=== PATIENT | male | born 1955 | race Caucasian/White ===

== ENCOUNTER → 2016-08-08 | Outpatient (REF) | payer BC ==
[2016-08-08 16:04] LABS: BASO # 0.1 K/mm3 (0.0-0.2); BASO % 0.6 % (0.0-1.0); EOS # 0.2 K/mm3 (0.0-0.50); EOS % 1.8 % (0.0-3.0); LARGE UNSTAINED CELL # 0.2 K/mm3 (0.0-0.4); LARGE UNSTAINED CELL % 1.5 % (0.0-4.0); LYMPH # 2.2 K/mm3 (1.5-4.5); LYMPH % 19.2 % (24.0-44.0); MEAN CORPUSCULAR HEMOGLOBIN 30.5 pg (27.0-33.0); MEAN CORPUSCULAR HGB CONC 33.2 g/dl (32.0-36.5); MONO # 0.6 K/mm3 (0.0-0.8); MONO % 5.7 % (0.0-5.0); NEUTROPHILS # 7.7 K/mm3 (1.8-7.7); NEUTROPHILS % 71.2 % (36.0-66.0); PLATELET COUNT, AUTOMATED 205 k/mm3 (150-450); RED CELL DISTRIBUTION WIDTH 12.6 % (11.5-14.5); WHITE BLOOD COUNT 10.8 K/mm3 (4.0-10.0)
[2016-08-08 16:13] LABS: ALBUMIN/GLOBULIN RATIO 1.67 (1.00-1.93); ALKALINE PHOSPHATASE 109 U/L (45-117); ALT/SGPT 44 U/L (12-78); ANION GAP 7 MEQ/L (8-16); AST/SGOT 20 U/L (15-37); BILIRUBIN,TOTAL 0.6 MG/DL (0.2-1.0); BLOOD UREA NITROGEN 14 MG/DL (7-18); CALCIUM LEVEL 8.6 MG/DL (8.8-10.2); CARBON DIOXIDE LEVEL 29 MEQ/L (21-32); CHLORIDE LEVEL 106 MEQ/L (98-107); CREATININE FOR GFR 0.89 MG/DL (0.70-1.30); GLOMERULAR FILTRATION RATE > 60.0 (>49); GLUCOSE, FASTING 86 MG/DL (80-110); POTASSIUM SERUM 4.4 MEQ/L (3.5-5.1); SODIUM LEVEL 142 MEQ/L (136-145); TOTAL PROTEIN 6.4 GM/DL (6.4-8.2); URIC ACID 6.2 MG/DL (3.5-7.2)
[2016-08-08 17:25] LABS: ERYTHROCYTE SEDIMENTATION RATE 3 mm/hr (0-20)
[2016-08-12 13:06] LABS: ALBUMIN 3.97 GM/DL (3.29-5.55); ALBUMIN % 62.1 % (55.8-66.1); GAMMA GLOBULIN % 10.7 % (11.1-18.8)
== END ==
LOC: M LABDRAW1 15:40
PROVIDERS: ATTEND Orthopaedic Surgery
DX: M16.12 Unilateral primary osteoarthritis, left hip (principal)

== ENCOUNTER → 2016-08-20 | Outpatient (REF) | payer BC | LOC: M LABDRAW1 15:36 | PROVIDERS: ATTEND Orthopaedic Surgery | DX: M16.12 Unilateral primary osteoarthritis, left hip (principal); M51.26 Other intervertebral disc displacement, lumbar region ==

== ENCOUNTER → 2017-09-16 | Outpatient (REF) | payer MEDICAID ==
[2017-09-16 15:36] LABS: PROSTATIC SPECIFIC AG MONITOR 4.14 NG/ML (< 4.0)
== END ==
LOC: M LABDRWAD 13:32
DX: N40.1 Benign prostatic hyperplasia with lower urinary tract symptoms (principal)

== ENCOUNTER → 2017-12-25 | Outpatient (CLI) | payer OTHER ==
[2017-12-25 10:17] LABS: HEMATOCRIT 50.8 % (42.0-52.0); HEMOGLOBIN 16.9 g/dl (13.5-17.5); MEAN CORPUSCULAR HEMOGLOBIN 30.3 pg (27.0-33.0); MEAN CORPUSCULAR HGB CONC 33.3 g/dl (32.0-36.5); MEAN CORPUSCULAR VOLUME 91.2 fl (80.0-96.0); PLATELET COUNT, AUTOMATED 241 10^3/uL (150-450); RED BLOOD COUNT 5.57 10^6/uL (4.30-6.10); RED CELL DISTRIBUTION WIDTH 13.9 % (11.5-14.5)
[2017-12-25 10:27] LABS: INR 0.96; PROTHROMBIN TIME 12.9 SECONDS (12.1-14.4)
[2017-12-25 10:37] LABS: ERYTHROCYTE SEDIMENTATION RATE 9 mm/hr (0-20)
[2017-12-25 10:44] LABS: ALBUMIN 3.7 GM/DL (3.2-5.2); ALBUMIN/GLOBULIN RATIO 1.23 (1.00-1.93); ALKALINE PHOSPHATASE 81 U/L (45-117); ALT/SGPT 27 U/L (12-78); ANION GAP 5 MEQ/L (8-16); AST/SGOT 16 U/L (7-37); BILIRUBIN,TOTAL 0.9 MG/DL (0.2-1.0); BLOOD UREA NITROGEN 16 MG/DL (7-18); CALCIUM LEVEL 9.1 MG/DL (8.8-10.2); CARBON DIOXIDE LEVEL 29 MEQ/L (21-32); CHLORIDE LEVEL 108 MEQ/L (98-107); CREATININE FOR GFR 0.96 MG/DL (0.70-1.30); GLOMERULAR FILTRATION RATE > 60.0 (>49); GLUCOSE, FASTING 86 MG/DL (70-100); POTASSIUM SERUM 4.8 MEQ/L (3.5-5.1); SODIUM LEVEL 142 MEQ/L (136-145); TOTAL PROTEIN 6.7 GM/DL (6.4-8.2)
== END ==
LOC: M LAB 08:06
DX: Z01.818 Encounter for other preprocedural examination (principal)
CPT/HCPCS: 71046

== ENCOUNTER 2018-02-13 05:38 | Inpatient (IN) | payer OTHER ==
[2018-02-13] MEDS: ACETAMINOPHEN 500 MG TAB PO (06:37)
[2018-02-13] MEDS: LR 1,000 ML IV ×3 (06:38→21:15)
[2018-02-13] MEDS ORDERED: dexameTHASONE 4 MG/ML 1ML VIAL (J1100) As Ordered (07:02)
[2018-02-13] MEDS ORDERED: LIDOCAINE 2% INJ 100 MG/5 ML SDV (FOR ANES.) As Ordered (07:02)
[2018-02-13] MEDS ORDERED: PHENYLephrine HCL 500 MCG/5 ML (100MCG/ML) SYRINGE (J2370) As Ordered ×2 (07:02→08:41)
[2018-02-13] MEDS ORDERED: ONDANSETRON 4MG/2ML VIAL (J2405) As Ordered (07:02)
[2018-02-13] MEDS ORDERED: MIDAZOLAM INJ 2 MG/2 ML VIAL (J2250) As Ordered (07:02)
[2018-02-13] MEDS ORDERED: PROPOFOL 500 MG/50 ML VIAL As Ordered (07:02)
[2018-02-13] MEDS ORDERED: fentaNYL 100 MCG/2 ML INJECTION (J3010) As Ordered (07:02)
[2018-02-13] MEDS ORDERED: KETOROLAC 60 MG/2 ML VIAL (J1885) As Ordered (07:02)
[2018-02-13] MEDS: ceFAZolin 1GM INJ (J0690 PER 500MG) As Ordered (08:13)
[2018-02-13] MEDS ORDERED: BUPIVACAINE/DEXTROSE 0.75% 2 ML AMP As Ordered (08:13)
[2018-02-13] MEDS ORDERED: PROPOFOL 200 MG/20 ML VIAL As Ordered ×2 (08:39)
[2018-02-13] MEDS: TRANEXAMIC ACID 100 MG/ML 10ML VIAL As Ordered (09:18)
[2018-02-13] MEDS: EPINEPHrine INJ 1 MG/ML 1ML AMP As Ordered (09:18)
[2018-02-13] MEDS ORDERED: MORPHINE 1MG/ML IN 0.9% NACL 100ML IV BAG As Ordered (09:50)
[2018-02-13] MEDS ORDERED: NALOXONE INJ 0.4 MG/1 ML VIAL (J2310) IV (10:00)
[2018-02-13] MEDS ORDERED: ONDANSETRON 4MG/2ML VIAL (J2405) IV ×2 (10:00→10:15)
[2018-02-13] MEDS ORDERED: diphenhydrAMINE INJ 50MG/ML VIAL (J1200) IV (10:00)
[2018-02-13] MEDS ORDERED: NALBUPHINE HCL 10 MG/ML AMP (J2300) IV (10:00)
[2018-02-13] MEDS ORDERED: EPIDURAL/PCA KEYS XX (10:00)
[2018-02-13] MEDS ORDERED: MORPHINE 1MG/ML IN 0.9% NACL 100ML IV BAG IV (10:00)
[2018-02-13] MEDS ORDERED: ACETAMINOPHEN TAB 650MG DOSE (2X325MG) PO (10:15)
[2018-02-13] MEDS ORDERED: FLEET ENEMA PR (10:15)
[2018-02-13] MEDS ORDERED: MORPHINE 10 MG/ML 1ML VIAL (J2270) IV (10:15)
[2018-02-13] MEDS ORDERED: fentaNYL 100 MCG/2 ML INJECTION (J3010) IV (10:15)
[2018-02-13] MEDS ORDERED: RIVAROXABAN 10 MG TAB (XARELTO) PO (18:00)
[2018-02-14] MEDS ORDERED: PERCOCET 5MG/325MG TAB PO (07:00)
[2018-02-14] MEDS ORDERED: ONDANSETRON 4 MG TAB (S0181) PO (07:00)
[2018-02-14 07:07] LABS: HEMATOCRIT 44.6 % (42.0-52.0); HEMOGLOBIN 15.1 g/dl (13.5-17.5); MEAN CORPUSCULAR HEMOGLOBIN 30.4 pg (27.0-33.0); MEAN CORPUSCULAR HGB CONC 33.9 g/dl (32.0-36.5); MEAN CORPUSCULAR VOLUME 89.9 fl (80.0-96.0); PLATELET COUNT, AUTOMATED 233 10^3/uL (150-450); RED BLOOD COUNT 4.96 10^6/uL (4.30-6.10); RED CELL DISTRIBUTION WIDTH 13.6 % (11.5-14.5); WHITE BLOOD COUNT 18.2 10^3/uL (4.0-10.0)
[2018-02-14 07:18] LABS: INR 0.97
[2018-02-14 07:37] LABS: ANION GAP 9 MEQ/L (8-16); BLOOD UREA NITROGEN 17 MG/DL (7-18); CALCIUM LEVEL 8.7 MG/DL (8.8-10.2); CARBON DIOXIDE LEVEL 28 MEQ/L (21-32); CHLORIDE LEVEL 104 MEQ/L (98-107); CHOLESTEROL LEVEL 194 MG/DL (<200); CHOLESTEROL RISK RATIO 4.311 (<5); CREATININE FOR GFR 0.97 MG/DL (0.70-1.30); GLOMERULAR FILTRATION RATE > 60.0 (>49); GLUCOSE, FASTING 98 MG/DL (70-100); HDL CHOLESTEROL 45 MG/DL (>40); LDL CHOLESTEROL 121 MG/DL (<100); NON-HDL-C 149 MG/DL; POTASSIUM SERUM 4.6 MEQ/L (3.5-5.1); SODIUM LEVEL 141 MEQ/L (136-145); THYROID STIMULATING HORMONE 0.426 uIU/ML (0.358-3.740); TRIGLYCERIDES LEVEL 141 MG/DL (<150)
[2018-02-14 07:49] LABS: ESTIMATED AVERAGE GLUCOSE 108 MG/DL (60-110); HEMOGLOBIN A1c 5.4 %
[2018-02-14] MEDS: SENOKOT S TAB PO (09:35)
[2018-02-14] MEDS: MOM 30ML SUSPENSION UDC PO (09:35)
[2018-02-14] MEDS: MIRALAX *UNIT DOSE* 17GM PACKET PO (09:35)
[2018-02-14] MEDS: PERCOCET 5MG/325MG TAB PO (09:36)
[2018-02-14] MEDS ORDERED: RIVAROXABAN 10 MG TAB (XARELTO) PO (18:00)
== END 2018-02-14 12:15 | disposition home health service (06) | DRG 301 ==
LOC: M OR 05:38 → M MS5PR 12:00
PROC: 0SRB04A Replacement of Left Hip Joint with Ceramic on Polyethylene Synthetic Substitute, Uncemented, Open Approach (ICD-10-PCS; principal; 2018-02-13 07:24)
DX: M16.12 Unilateral primary osteoarthritis, left hip (principal); M06.9 Rheumatoid arthritis, unspecified; F17.210 Nicotine dependence, cigarettes, uncomplicated; R73.9 Hyperglycemia, unspecified

== ENCOUNTER 2018-07-16 11:42 | Day surgery (SDC) | payer OTHER ==
[~2018-07-16] VITALS: Ht 182.9 cm; Wt 121.6 kg
[~2018-07-16 11:42] MED LIST: LAC-LOT2 EX; NS 1,000 ML IV ONE; PERC5TAB12 PO; VIAG100T PO; XARE10TA PO
[2018-07-16] MEDS ORDERED: PROPOFOL 200 MG/20 ML VIAL As Ordered ONE ×2 (12:06→13:33)
[2018-07-16] MEDS ORDERED: LIDOCAINE 2% INJ 100 MG/5 ML SDV (FOR ANES.) As Ordered ONE (12:06)
--- NOTE | 2018-07-16 13:59 | ROOR ---
Patient Name: Drew Camp Procedure Date: 07/16/2018 1:12 PM Date of : 1955 Age: 62 Room: [facility] Gender: Male Note Status: Finalized Procedure: Colonoscopy Indications: Screening in patient at increased risk: Family history of 1st-degree relative with colorectal cancer Providers: Joey Kern Jr, MD Referring MD: RICHARD MEZA Requesting Provider: Medicines: Propofol per Anesthesia Complications: No immediate complications. Procedure: Pre-Anesthesia Assessment: - Prior to the procedure, a History and Physical was performed, and patient medications and allergies were reviewed. The patient is competent. The risks and benefits of the procedure and the sedation options and risks were discussed with the patient. All questions were answered and informed consent was obtained. Patient identification and proposed procedure were verified by the physician and the nurse in the pre-procedure area and in the procedure room. Mental Status Examination: alert and oriented. Airway Examination: normal oropharyngeal airway and neck mobility. Respiratory Examination: clear to auscultation. CV Examination: normal. ASA Grade Assessment: II - A patient with mild systemic disease. After reviewing the risks and benefits, the patient was deemed in satisfactory condition to undergo the procedure. The anesthesia plan was to use moderate sedation / analgesia (conscious sedation). Immediately prior to administration of medications, the patient was re-assessed for adequacy to receive sedatives. The heart rate, respiratory rate, oxygen saturations, blood pressure, adequacy of pulmonary ventilation, and response to care were monitored throughout the procedure. The physical status of the patient was re-assessed after the procedure. The Colonoscope was introduced through the anus and advanced to the cecum, identified by appendiceal orifice and ileocecal valve. The colonoscopy was performed without difficulty. The patient tolerated the procedure well. The quality of the bowel preparation was adequate. Findings: The rectum, recto-sigmoid colon, cecum, appendiceal orifice and ileocecal valve appeared normal. Multiple small and large-mouthed diverticula were found in the sigmoid colon. Multiple small and large-mouthed diverticula were found in the sigmoid colon. Betzaida-diverticular erythema was seen. Petechia were visualized in association with the diverticular opening. There was no evidence of diverticular bleeding. Five polyps were found in the sigmoid colon and transverse colon. The polyps were small in size. These polyps were removed with a hot snare. Resection and retrieval were complete. A medium polyp was found in the transverse colon. The polyp was semi-pedunculated. The polyp was removed with a hot snare. Resection and retrieval were complete. Impression: - The rectum, recto-sigmoid colon, cecum, appendiceal orifice and ileocecal valve are normal. - Diverticulosis in the sigmoid colon. - Moderate diverticulosis in the sigmoid colon. Betzaida-diverticular erythema was seen. Petechia were visualized in association with the diverticular opening. There was no evidence of diverticular bleeding. - Five small polyps in the sigmoid colon and in the transverse colon, removed with a hot snare. Resected and retrieved. - One medium polyp in the transverse colon, removed with a hot snare. Resected and retrieved. Recommendation: - Discharge patient to home (ambulatory). - Repeat colonoscopy in 3 - 5 years for surveillance based on pathology results. Joey Kern MD Joey Kern Jr, MD 07/16/2018 1:58:34 PM Electronically signed by Joey Kern Jr, MD Number of Addenda: 0 Note Initiated On: 07/16/2018 1:12 PM Estimated Blood Loss: Estimated blood loss: none.
[2018-07-16 14:20] VITALS: BP 175/89
== END 2018-07-16 14:28 | disposition home or self-care (01) ==
LOC: M OPP 11:42
PROVIDERS: ATTEND Surgery
DX: D12.5 Benign neoplasm of sigmoid colon (principal); D12.3 Benign neoplasm of transverse colon; K57.30 Diverticulosis of large intestine without perforation or abscess without bleeding; Z12.11 Encounter for screening for malignant neoplasm of colon; Z80.0 Family history of malignant neoplasm of digestive organs

== ENCOUNTER → 2018-12-31 | Outpatient (REF) | payer MEDICARE, OTHER, SELFPAY ==
[~2018-12-31] MED LIST changes: -NS 1,000 ML IV ONE
[2018-12-31 13:05] LABS: BASO # 0.1 10^3/uL (0.0-0.2); BASO % 0.5 % (0.0-1.0); EOS # 0.1 10^3/uL (0.0-0.5); EOS % 0.9 % (0.0-3.0); HEMATOCRIT 53.5 % (42.0-52.0); HEMOGLOBIN 18.1 g/dl (13.5-17.5); LYMPH # 2.8 10^3/uL (1.5-5.0); LYMPH % 19.2 % (24.0-44.0); MEAN CORPUSCULAR HEMOGLOBIN 30.4 pg (27.0-33.0); MEAN CORPUSCULAR HGB CONC 33.8 g/dl (32.0-36.5); MEAN CORPUSCULAR VOLUME 89.9 fl (80.0-96.0); MONO # 1.1 10^3/uL (0.0-0.8); MONO % 7.8 % (0.0-5.0); NEUTROPHILS # 10.2 10^3/uL (1.5-8.5); NEUTROPHILS % 70.8 % (36.0-66.0); PLATELET COUNT, AUTOMATED 278 10^3/uL (150-450); RED BLOOD COUNT 5.95 10^6/uL (4.30-6.10); WHITE BLOOD COUNT 14.4 10^3/uL (4.0-10.0)
[2018-12-31 13:33] LABS: ERYTHROCYTE SEDIMENTATION RATE 2 mm/hr (0-20)
== END ==
LOC: M LABDRAW1 08:37
PROVIDERS: ATTEND Orthopaedic Surgery
DX: Z47.1 Aftercare following joint replacement surgery (principal)

== ENCOUNTER → 2020-05-08 | Outpatient (CLI) | payer SELFPAY | LOC: M LABSMTC 12:59 | PROVIDERS: ATTEND Pediatrics | DX: Z20.822 Contact with and (suspected) exposure to COVID-19 (principal) ==

== ENCOUNTER → 2020-08-29 | Outpatient (CLI) | payer MEDICARE ==
--- NOTE | 2020-08-29 11:17 | REP ---
INDICATION: LOCALIZED MAS/LUMP AT BASE OF 5TH DIGIT X 1 YEAR COMPARISON: 06/22/2019. TECHNIQUE: Four views right hand. FINDINGS: Once again the lunate bone appears sclerotic and is not well visualized. 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 There is again moderate narrowing with subchondral sclerosis at the radiocarpal joint. There is no acute fracture or dislocation. There is appear rounded soft tissue mass adjacent to the 5th metacarpophalangeal joint, approximately 3 cm in diameter. IMPRESSION: No acute fracture or dislocation. Arthritic changes again seen at the radiocarpal joint. There appears to be a rounded soft tissue mass adjacent to the 5th metacarpophalangeal joint. Recommend MRI with and without contrast to further evaluate. <Electronically signed by Harsha Kimble > 08/29/20 [id number]
== END ==
LOC: M WUC 08:56
PROVIDERS: ATTEND Physician Assistant
DX: R22.31 Localized swelling, mass and lump, right upper limb (principal)

== ENCOUNTER → 2020-10-10 | Outpatient (CLI) | payer MEDICARE ==
[2020-10-10 11:14] LABS: BLOOD UREA NITROGEN 12 MG/DL (7-18); CREATININE FOR GFR 0.96 MG/DL (0.70-1.30); GLOMERULAR FILTRATION RATE > 60.0 (>49)
== END ==
LOC: M LAB 10:21
PROVIDERS: ATTEND Orthopaedic Surgery
DX: M79.89 Other specified soft tissue disorders (principal)

== ENCOUNTER → 2021-01-25 | Outpatient (REF) | payer MEDICARE | LOC: M LABDRWAD 15:57 | PROVIDERS: ATTEND Nurse Practitioner Family | DX: R97.20 Elevated prostate specific antigen [PSA] (principal) ==

== ENCOUNTER → 2021-03-14 | Outpatient (REF) | payer MEDICARE | LOC: M LABDRWAD 13:14 | PROVIDERS: ATTEND Nurse Practitioner Family | DX: R97.20 Elevated prostate specific antigen [PSA] (principal) ==

== ENCOUNTER → 2021-04-12 | Outpatient (CLI) | payer MEDICARE ==
--- NOTE | 2021-04-12 11:33 | REP ---
INDICATION: PAIN COMPARISON: None. TECHNIQUE: AP and frog-lateral views of the right hip FINDINGS: Osteopenia and moderate degenerative changes include increased sclerosis along the acetabular roof with moderate joint space narrowing and very subtle marginal spurring. No acute fracture or dislocation is identified. Evidence for peripheral vascular disease. IMPRESSION: Osteopenia and early moderate degenerative changes. <Electronically signed by Dameon Smith > 04/12/21 [id number]
== END ==
LOC: M WUC 11:19
PROVIDERS: ATTEND Physician Assistant
DX: M16.11 Unilateral primary osteoarthritis, right hip (principal); M85.851 Other specified disorders of bone density and structure, right thigh; M25.551 Pain in right hip

== ENCOUNTER → 2021-12-18 | Outpatient (CLI) | payer MEDICARE | LOC: M ADAMS 13:02 | PROVIDERS: ATTEND Nurse Practitioner Family | DX: R97.20 Elevated prostate specific antigen [PSA] (principal); N40.1 Benign prostatic hyperplasia with lower urinary tract symptoms; R35.1 Nocturia ==

== ENCOUNTER → 2022-06-21 | Outpatient (REF) | payer MEDICARE | LOC: M LAB REF 19:56 | PROVIDERS: ATTEND Nurse Practitioner Family | DX: R97.20 Elevated prostate specific antigen [PSA] (principal) ==

== ENCOUNTER 2023-01-31 02:15 | Emergency (ER) | payer MEDICARE ==
[~2023-01-31] VITALS: Ht 185.4 cm; Wt 133.4 kg
[2023-01-31 03:11] LABS: BASO # 0.1 10^3/uL (0.0-0.2); BASO % 0.5 % (0.0-1.0); EOS # 0.1 10^3/uL (0.0-0.5); EOS % 0.6 % (0.0-3.0); HEMATOCRIT 47.9 % (42.0-52.0); HEMOGLOBIN 16.7 g/dl (13.5-17.5); LYMPH # 1.1 10^3/uL (1.5-5.0); LYMPH % 11.7 % (24.0-44.0); MEAN CORPUSCULAR HEMOGLOBIN 31.4 pg (27.0-33.0); MEAN CORPUSCULAR HGB CONC 34.9 g/dl (32.0-36.5); MONO # 0.7 10^3/uL (0.0-0.8); MONO % 7.5 % (2.0-8.0); NEUTROPHILS # 7.4 10^3/uL (1.5-8.5); NEUTROPHILS % 79.1 % (36.0-66.0); PLATELET COUNT, AUTOMATED 204 10^3/uL (150-450); RED BLOOD COUNT 5.32 10^6/uL (4.30-6.10); WHITE BLOOD COUNT 9.4 10^3/uL (4.0-10.0)
[2023-01-31 03:28] LABS: INR 1.02; PROTHROMBIN TIME 13.1 SECONDS (12.5-14.5)
[2023-01-31 03:29] LABS: PARTIAL THROMBOPLASTIN TIME 29.5 SECONDS (24.8-34.2)
[2023-01-31 03:56] LABS: RSV AMPLIFICATION NEGATIVE (NEGATIVE)
[2023-01-31 04:21] LABS: MB/CK RELATIVE INDEX 3.89 (< OR =4)
[2023-01-31 04:25] LABS: CK-MB VALUE MASS 4.4 NG/ML (<3.6)
[2023-01-31 04:26] LABS: BLOOD UREA NITROGEN 16 MG/DL (9-23); CALCIUM LEVEL 9.4 MG/DL (8.3-10.6); CARBON DIOXIDE LEVEL 25 MMOL/L (20-31); CHLORIDE LEVEL 110 MMOL/L (98-107); CREATININE FOR GFR 0.84 MG/DL (0.70-1.30); GLOMERULAR FILTRATION RATE > 60.0 (>49); GLUCOSE, FASTING 116 MG/DL (74-106); POTASSIUM SERUM 4.5 MMOL/L (3.5-5.1); SODIUM LEVEL 141 MMOL/L (136-145)
[2023-01-31 04:34] LABS: CPK CREATINE PHOSPHOKINASE 145 U/L (46-171); MB/CK RELATIVE INDEX 3.03 (< OR =4)
[2023-01-31] MEDS ORDERED: NITROGLYCERIN 2% OINT 1 GM *U/D* PKT TOP ONE (04:35)
[2023-01-31] MEDS ORDERED: ISOVUE-370 76% 100ML VIAL As Ordered ONE (04:39)
[2023-01-31] MEDS ORDERED: HEPARIN SOD (PORCINE) 5000UNITS/ML 1ML VIAL/SYRINGE IV ONE (05:40)
[2023-01-31] MEDS ORDERED: HEPARIN DRIP 25,000 UNITS in IV 1 EA IV SCH (05:40)
[2023-01-31] MEDS ORDERED: HEPARIN SOD (PORCINE) 5000UNITS/ML 1ML VIAL/SYRINGE IV PRN (05:40)
[2023-01-31 08:56] VITALS: BP 134/78; TEMP 97.7; O2SAT 97
== END 2023-01-31 09:03 | disposition short-term general hospital (02) ==
LOC: M ED 02:15 → EDBD 02:15 → M ED 09:03
DX: I21.4 Non-ST elevation (NSTEMI) myocardial infarction (principal); F17.200 Nicotine dependence, unspecified, uncomplicated; F12.10 Cannabis abuse, uncomplicated; F10.10 Alcohol abuse, uncomplicated
CPT/HCPCS: 71045; 71275; 80048; 82550; 82553; 83880; 84484; 85025; 85610; 85730; 87631; 93005; 93041; 94760; 96365; 96366; 99285; Q9967

== ENCOUNTER 2023-03-31 11:15 | Observation (INO) | payer MEDICARE ==
[~2023-03-31] VITALS: Ht 185.4 cm; Wt 116.4 kg
[~2023-03-31 11:15] MED LIST changes: +amLODIPine 5 MG TAB PO SCH
[2023-03-31 12:53] LABS: BASO # 0.1 10^3/uL (0.0-0.2); BASO % 0.4 % (0.0-1.0); EOS # 0.1 10^3/uL (0.0-0.5); EOS % 0.7 % (0.0-3.0); HEMATOCRIT 42.4 % (42.0-52.0); LYMPH # 1.8 10^3/uL (1.5-5.0); LYMPH % 15.9 % (24.0-44.0); MEAN CORPUSCULAR HEMOGLOBIN 29.7 pg (27.0-33.0); MEAN CORPUSCULAR VOLUME 89.8 fl (80.0-96.0); MONO # 0.6 10^3/uL (0.0-0.8); MONO % 5.4 % (2.0-8.0); NEUTROPHILS # 8.9 10^3/uL (1.5-8.5); NEUTROPHILS % 77.3 % (36.0-66.0); PLATELET COUNT, AUTOMATED 243 10^3/uL (150-450); RED BLOOD COUNT 4.72 10^6/uL (4.30-6.10); WHITE BLOOD COUNT 11.6 10^3/uL (4.0-10.0)
[2023-03-31] MEDS ORDERED: ATOR40TA75 PO (13:05)
[2023-03-31] MEDS ORDERED: LOPE1CAP5 PO (13:05)
[2023-03-31] MEDS ORDERED: CLOP75TA2 PO (13:05)
[2023-03-31] MEDS ORDERED: DIPH2.5T15 PO (13:05)
[2023-03-31] MEDS ORDERED: PANT40TA29 PO (13:05)
[2023-03-31] MEDS ORDERED: LISI2.5T9 PO (13:05)
[2023-03-31] MEDS ORDERED: ASPI-226 PO (13:05)
[2023-03-31] MEDS ORDERED: ALBU2.5V10 (13:07)
[2023-03-31 13:56] LABS: CK-MB VALUE MASS < 1.0 NG/ML (<3.6)
[2023-03-31 13:57] LABS: BLOOD UREA NITROGEN 12 MG/DL (9-23); CALCIUM LEVEL 9.4 MG/DL (8.3-10.6); CARBON DIOXIDE LEVEL 25 MMOL/L (20-31); CHLORIDE LEVEL 107 MMOL/L (98-107); CREATININE FOR GFR 0.84 MG/DL (0.70-1.30); GLOMERULAR FILTRATION RATE > 60.0 (>49); GLUCOSE, FASTING 103 MG/DL (74-106); SODIUM LEVEL 143 MMOL/L (136-145)
[2023-03-31 13:59] LABS: CPK CREATINE PHOSPHOKINASE 37 U/L (46-171)
[2023-03-31] MEDS ORDERED: NS 500 ML IV ONE (15:15)
[2023-03-31] MEDS ORDERED: MECLIZINE 25 MG TABLET PO ONE (15:15)
[2023-03-31] MEDS ORDERED: METOPROLOL TART 25 MG TABLET PO ONE (15:15)
[2023-03-31] MEDS ORDERED: ISOVUE-370 76% 100ML VIAL As Ordered ONE (15:20)
[2023-03-31 16:16] LABS: THYROID STIMULATING HORMONE 1.234 uIU/ML (0.55-4.78)
[2023-03-31 16:17] LABS: FREE T4 1.13 NG/DL (0.89-1.76)
[2023-03-31 17:39] LABS: CK-MB VALUE MASS < 1.0 NG/ML (<3.6)
[2023-03-31 17:42] LABS: CPK CREATINE PHOSPHOKINASE 37 U/L (46-171)
[2023-03-31] MEDS ORDERED: MED REC IN PROGRESS XX SCH ×2 (18:05→18:25)
[2023-03-31] MEDS ORDERED: METO1TAB87 PO (18:15)
[2023-03-31] MEDS ORDERED: HOME MED LIST COMPLETE! XX SCH ×2 (18:20→18:25)
[2023-03-31] MEDS ORDERED: hydrALAZINE 20MG/ML 1ML VIAL IV PRN (18:45)
[2023-03-31 18:55] LABS: RSV AMPLIFICATION NEGATIVE (NEGATIVE)
[2023-03-31] MEDS: LOMOTIL 2.5MG/0.025MG TABLET PO SCH (21:00)
[2023-03-31] MEDS ORDERED: ENOXAPARIN 40MG/0.4ML SYRINGE (J1650 PER 10MG) SC SCH (21:00)
[2023-03-31] MEDS ORDERED: ATORVASTATIN 20 MG TAB PO SCH (21:00)
[2023-03-31] MEDS: PANTOPRAZOLE 40MG TAB (PROTONIX) PO SCH (21:51)
[2023-03-31] MEDS: METOPROLOL TART 25 MG TABLET PO SCH (21:51)
[2023-04-01 07:05] LABS: BLOOD UREA NITROGEN 11 MG/DL (9-23); CALCIUM LEVEL 9.2 MG/DL (8.3-10.6); CARBON DIOXIDE LEVEL 24 MMOL/L (20-31); CHLORIDE LEVEL 107 MMOL/L (98-107); CREATININE FOR GFR 0.74 MG/DL (0.70-1.30); GLOMERULAR FILTRATION RATE > 60.0 (>49); GLUCOSE, FASTING 93 MG/DL (74-106); POTASSIUM SERUM 3.6 MMOL/L (3.5-5.1); SODIUM LEVEL 140 MMOL/L (136-145)
[2023-04-01 07:49] LABS: HEMOGLOBIN 13.2 g/dl (13.5-17.5); MEAN CORPUSCULAR HEMOGLOBIN 29.5 pg (27.0-33.0); MEAN CORPUSCULAR VOLUME 89.5 fl (80.0-96.0); PLATELET COUNT, AUTOMATED 225 10^3/uL (150-450); RED BLOOD COUNT 4.47 10^6/uL (4.30-6.10); WHITE BLOOD COUNT 8.6 10^3/uL (4.0-10.0)
[2023-04-01] MEDS: METOPROLOL TART 25 MG TABLET PO SCH (08:47)
[2023-04-01] MEDS: LOMOTIL 2.5MG/0.025MG TABLET PO SCH (08:47)
[2023-04-01] MEDS: PANTOPRAZOLE 40MG TAB (PROTONIX) PO SCH (08:47)
[2023-04-01] MEDS ORDERED: amLODIPine 5 MG TAB PO SCH (09:00)
[2023-04-01] MEDS ORDERED: CLOPIDOGREL 75 MG TAB PO SCH (09:00)
[2023-04-01] MEDS ORDERED: LISINOPRIL *2.5 MG* TAB PO SCH (09:00)
[2023-04-01] MEDS ORDERED: ASPIRIN 81MG ENTERIC TABLET PO SCH (09:00)
[2023-04-01] MEDS ORDERED: AMLO1TAB24 PO (10:18)
[2023-04-01 10:20] VITALS: BP 111/57
[2023-04-01 11:15] VITALS: BP 118/58; O2SAT 97
[2023-04-01 11:48] VITALS: TEMP 97.8
== END 2023-04-01 11:49 | disposition home or self-care (01) ==
LOC: M ED 11:15 → EDBD 11:15 → M ED INP 11:16
PROVIDERS: ADMIT Internal Medicine; ATTEND Internal Medicine
DX: I16.0 Hypertensive urgency (principal); H81.10 Benign paroxysmal vertigo, unspecified ear; G45.9 Transient cerebral ischemic attack, unspecified; R26.89 Other abnormalities of gait and mobility; I25.2 Old myocardial infarction; I25.10 Atherosclerotic heart disease of native coronary artery without angina pectoris; Z95.1 Presence of aortocoronary bypass graft; K21.9 Gastro-esophageal reflux disease without esophagitis; Z79.02 Long term (current) use of antithrombotics/antiplatelets; I10 Essential (primary) hypertension; E78.5 Hyperlipidemia, unspecified; Z79.899 Other long term (current) drug therapy
CPT/HCPCS: 36415; 70450; 70496; 70498; 70551; 71045; 80047; 80048; 82550; 82553; 84439; 84443; 84484; 85025; 85027; 87631; 93005; 93041; 93880; 94760; 96372; 96374; 96375; 97161; 99285; G0378; J0360; J1650; Q9967